=== PATIENT | female | born 1945 | race Caucasian/White ===

== ENCOUNTER → 2016-06-28 | Outpatient (CLI) | payer OTHER ==
[~2016-06-28] MED LIST: ASPCH81X PO; ATOR-24 PO; BIOTCAP2 PO; BUPR-79 PO; CALC-51 PO; CHOL200010 PO; COEN1CAP7 PO; ESCI10TA17 PO
== END | disposition home or self-care (01) ==
LOC: C.LABSPEC 17:25
PROVIDERS: ATTEND Obstetrics & Gynecology
DX: N95.0 Postmenopausal bleeding (principal)

== ENCOUNTER → 2016-07-09 | Outpatient (CLI) | payer OTHER ==
--- NOTE | 2016-07-09 15:29 | MAMMOGRAPHY REPORT ---
BILATERAL DIGITAL SCREENING MAMMOGRAM WITH CAD: 07/09/2016 CLINICAL HISTORY: Routine screening. Patient has no complaints. TECHNIQUE: Bilateral CC and MLO views were obtained. Current study was also evaluated with a Comput er Aided Detection (CAD) system. COMPARISON: Comparison is made to exams dated: 06/21/2015 mammogram, 05/20/2013 mammogram, and 5 mammogram. BREAST COMPOSITION: There are scattered areas of fibroglandular density in both breasts. FINDINGS: The breast parenchymal pattern is similar to prior exams. There are scattered benign-appe aring coarse and round calcifications in the breasts. Minimal vascular calcification. No suspiciou s mass, architectural distortion or cluster of suspicious microcalcifications is seen. IMPRESSION: ACR BI-RADS CATEGORY 1: NEGATIVE There is no mammographic evidence of malignancy. A 1 year screening mammogram is recommended. The p atient will receive written notification of the results. Approximately 10% of breast cancers are not detected with mammography. A negative mammographic repor t should not delay biopsy if a clinically suggestive mass is present. Aledya Gonzales M.D. ay/:07/09/2016 14:13:14 Welfare Worker: Gila BOB,R, M, [facility] letter sent: Normal 1/2 BI-RADS Code: ACR BI-RADS Category 1: Negative
== END | disposition home or self-care (01) ==
LOC: C.MAMM 12:22
PROVIDERS: ATTEND Internal Medicine
DX: Z12.31 Encounter for screening mammogram for malignant neoplasm of breast (principal)

== ENCOUNTER → 2016-07-23 | Outpatient (CLI) | payer OTHER ==
[~2016-07-23] MED LIST changes: +ENOX80IN SQ; +WARF5TAB7 PO
--- NOTE | 2016-07-30 07:06 | CODING QUERY MEDICAL NECESSITY ---
SUPPORTING DIAGNOSIS NEEDED Dr. Garcia, A supporting diagnosis is required for the test/procedure performed on this patient in order for us to be reimbursed by the patient's insurance. Please provide a supporting diagnosis for the following test/procedure listed below next to the test name along with your signature. *If there is no additional diagnosis for this patient that would support the following test/procedure please document that below next to the test/procedure. Test(s)/Procedure(s) that require a supporting diagnosis: * ([id number]) DXA BONE DENSITY, AXIAL DIAGNOSIS: DATE OF SERVICE: 07/23/16 Provider Signature: Date: Thank you Reji Aden [facility] Information Management Once completed, please kindly fax back to [phone] For questions please call [phone]
== END | disposition home or self-care (01) ==
LOC: C.MAMM 08:22
PROVIDERS: ATTEND Internal Medicine
DX: M85.88 Other specified disorders of bone density and structure, other site (principal)

== ENCOUNTER → 2016-08-05 | Day surgery (SDC) | payer OTHER ==
[2016-07-23 14:36] VITALS: Ht 160 cm; Wt 80.0 kg
[~2016-08-05] VITALS: Ht 160 cm; Wt 80.0 kg
[~2016-08-05] MED LIST changes: +ATROPINE SULFATE 0.1 MG/ML 5ML SYR IV PRN; +DEXAMETHASONE SOD INJ 4 MG/ML VIAL ONE; +EpHEDrine SULFATE INJ 50 MG/ML AMP IV PRN; +EpHEDrine SULFATE INJ 50 MG/ML AMP ONE; +FENTANYL CITRATE INJ 50 MCG/1 ML 2 ML VIAL IV PRN; +FENTANYL CITRATE INJ 50 MCG/1 ML 2 ML VIAL ONE; +HYDROmorphone INJ 1 MG/ML SYR IV PRN; +KETOROLAC TROMETHAMINE 30 MG/ML VIAL ONE; +LACTATED RINGER'S 1000ML 1,000 ML IV SCH; +LIDOCAINE HCL 2% 2 ML VIAL (20MG/ML) ONE; +MIDAZOLAM HCL 1 MG/ML 2ML VIAL ONE; +ONDANSETRON INJ 2 MG/ML 2 ML VIAL IV PRN; +ONDANSETRON INJ 2 MG/ML 2 ML VIAL ONE; +OXYCODONE/ACETAMINOPHEN 5-325 TAB PO PRN; +PROMETHAZINE HCL INJ 25 MG in SODIUM CHLORIDE 0.9% 50ML 50 ML IV PRN; +PROPOFOL IV EMULSION 10 MG/ML 20 ML VIAL IV ONE; +SODIUM CHLORIDE 0.9% 1000ML 1,000 ML IV SCH
--- NOTE | 2016-08-05 07:37 | History & Physical Bridge - SC ---
H&P Re-Evaluation Bridge Note: I have examined the patient, reviewed the History & Physical and in the interval since the performance of the History & Physical I have noted the following changes of clinical significance: No changes noted
--- NOTE | 2016-08-05 08:06 | [facility] Post Operative Brief Note ---
Immediate Operative Summary Operative Date Aug 05, 2016. Pre-Operative Diagnosis Post Menopausal Bleeding, cervical stenosis Post-Operative Diagnosis same Procedure(s) Performed Dilatation And Curettage, Hysteroscopy, Polypectomy Surgeon Dr. Serg Connolly Workers Compensation Paralegal Surgeon(s) 0 Estimated Blood Loss 5cc Findings Thin uterine lining, tubal ostia seen. Septate vs arcuate uterus. Fluids (cc crystalloids) 800cc Specimens A. Endometrial Curettings Drains bladder emptied prior to procedure Anesthesia General Complication(s) None Disposition Recovery Room / PACU
--- NOTE | 2016-08-05 08:09 | Discharge Instructions-SurgCtr ---
Discharge Instructions Date of Service Aug 05, 2016. Visit Reason for Visit: Post Menopausal Bleeding Discharge Discharge Diagnosis / Problem: postmenopausal bleeding Discharge Goals Goal(s): Diagnostic testing Activity Recommendations Activity Limitations: per Instructions/Follow-up section Anesthesia . Post Anesthesia Instructions: If you have had General Anesthesia or IV Sedation: * Do not drive today. * Resume driving when surgeon permits. * Do not make important decisions or sign legal documents today. * Call surgeon for: 1. Temperature elevations greater than 101 degrees F. 2. Uncontrollable pain. 3. Excessive bleeding. 4. Persistent nausea and vomiting. 5. Medication intolerance (nausea, vomiting or rash). * For nausea and vomiting use only clear liquids such as: tea, soda, bouillon until nausea subsides, then gradually increase diet as tolerated. * If you have any concerns or questions, call your surgeon's office. If physician is unavailable and it is an emergency, call 911 or go to the nearest emergency room. . Diet Recommendations Home Diet: resume previous diet Procedures Procedures Performed: Dilatation And Curettage, Hysteroscopy Pending Studies Studies pending at discharge: yes List of pending studies: pathology - endometrial currettage Medical Emergencies . Who to Call and When: Medical Emergencies: If at any time you feel your situation is an emergency, please call 911 immediately. . Non-Emergent Contact Non-Emergency issues call your: Primary Care Provider, Sweatband Perforator . . "Provider Documentation" section prepared by Faye Connolly.
--- NOTE | 2016-08-05 08:14 | Medical Student: [facility] ---
Operative Report Operative Date Aug 05, 2016. Pre-Operative Diagnosis Postmenopausal uterine bleeding Post-Operative Diagnosis Same Procedure(s) Performed Hysteroscopy, dilation and curettage, exam under anesthesia Surgeon Faye Connolly DO Customer Quality Engineer Surgeon(s) None Estimated Blood Loss 5mL Findings Atrophic endometrium Bilateral tubes visualized Possible septate uterus Stenotic cervix Otherwise normal postmenopausal anatomy Fluids (cc crystalloids) 800mL Lactated Ringer's Specimens Endometrial curettings Drains Bladder emptied with straight catheter prior to initiating procedure Anesthesia General anesthesia via laryngeal mask airway Complication(s) None Disposition Recovery Room / PACU
[2016-08-05 08:54] VITALS: TEMP 36.7
--- NOTE | 2016-08-05 09:08 | Discharge Instructions-SurgCtr ---
Discharge Instructions Date of Service Aug 05, 2016. Visit Reason for Visit: Post Menopausal Bleeding Discharge Discharge Diagnosis / Problem: same Discharge Goals Goal(s): Diagnostic testing Activity Recommendations Activity Limitations: per Instructions/Follow-up section Anesthesia . Post Anesthesia Instructions: If you have had General Anesthesia or IV Sedation: * Do not drive today. * Resume driving when surgeon permits. * Do not make important decisions or sign legal documents today. * Call surgeon for: 1. Temperature elevations greater than 101 degrees F. 2. Uncontrollable pain. 3. Excessive bleeding. 4. Persistent nausea and vomiting. 5. Medication intolerance (nausea, vomiting or rash). * For nausea and vomiting use only clear liquids such as: tea, soda, bouillon until nausea subsides, then gradually increase diet as tolerated. * If you have any concerns or questions, call your surgeon's office. If physician is unavailable and it is an emergency, call 911 or go to the nearest emergency room. . Instructions / Follow-Up Instructions / Follow-Up ACTIVITY RECOMMENDATIONS: * Avoid tampons, douching, hot tubs, pools, and intercourse until bleeding has stopped. * May shower as usual. * No strenuous activity for 24-48 hours. After 24-48 hours, you may do anything you feel like doing (driving and sports are okay). SPECIAL CARE INSTRUCTIONS: Special Diet: * Mild nausea may occur in the immediate post-operative period. * Take clear liquids such as tea, cola or bouillon until all nausea has subsided; you may then resume your normal diet. Special Care: * Light bleeding and vaginal spotting can last from a few days to 3-4 weeks. Call your doctor if bleeding becomes heavier than the heaviest part of your period. * Check your temperature twice a day for one week. If it goes above 100.4 degrees Fahrenheit (38.0 Celsius), notify your doctor. * Call your doctor's office for an appointment for 6 weeks after your surgery. FOLLOW-UP VISIT: Call your doctor's office for an appointment for 6 weeks after your surgery. Diet Recommendations Home Diet: resume previous diet Procedures Procedures Performed: Dilatation And Curettage, Hysteroscopy Pending Studies Studies pending at discharge: yes List of pending studies: pathology Medical Emergencies . Who to Call and When: Medical Emergencies: If at any time you feel your situation is an emergency, please call 911 immediately. . Non-Emergent Contact Non-Emergency issues call your: Primary Care Provider, Hospital Monitor . . "Provider Documentation" section prepared by Faye Connolly.
--- NOTE | 2016-08-05 09:09 | Anesthesia Progress Nt - [facility] ---
Anesthesia Post Op Note Date & Time Aug 05, 2016 at 09:08 Vital Signs Pain Intensity: 0 Vital Signs Past 12 Hours Date Time Temp Pulse Resp B/P Pulse Ox O2 Delivery O2 Flow Rate FiO2 08/05/16 08:54 36.7 86 18 125/79 94 Room Air 08/05/16 08:40 36.9 08/05/16 08:37 83 19 08/05/16 08:37 84 19 92 08/05/16 08:35 110/74 08/05/16 08:32 Room Air 08/05/16 08:32 85 16 90 08/05/16 08:32 85 16 08/05/16 08:30 99/65 08/05/16 08:27 85 10 08/05/16 08:27 85 10 98 08/05/16 08:25 120/71 08/05/16 08:22 86 14 08/05/16 08:22 86 14 99 08/05/16 08:20 119/71 08/05/16 08:17 90 15 98 08/05/16 08:17 91 15 08/05/16 08:15 114/74 08/05/16 08:12 94 17 08/05/16 08:12 94 17 98 08/05/16 08:10 119/67 08/05/16 08:10 113/65 08/05/16 08:08 36.4 92 12 119/67 99 Diffusion Mask 6 08/05/16 06:42 36.9 68 16 142/86 94 Room Air Notes Mental Status: alert / awake / arousable, participated in evaluation Pt Amnestic to Procedure: Yes Nausea / Vomiting: adequately controlled Pain: adequately controlled Airway Patency, RR, SpO2: stable & adequate BP & HR: stable & adequate Hydration State: stable & adequate Anesthetic Complications: no major complications apparent
[2016-08-05 09:24] VITALS: BP 124/80; PULSE 80; O2SAT 94
--- NOTE | 2016-08-05 09:24 | OPERATIVE REPORT ---
DATE OF OPERATION: 08/05/2016 PREOPERATIVE DIAGNOSIS: Postmenopausal bleeding and cervical stenosis. POSTOPERATIVE DIAGNOSIS: Same. PROCEDURES PERFORMED: Dilation, curettage and hysteroscopy. SURGEON: Faye Connolly DO GAS SINGER: None. ESTIMATED BLOOD LOSS: 5 mL. FINDINGS: Thin uterine lining, tubal ostia seen, septate versus arcuate uterus. FLUIDS: 800 mL. SPECIMENS: Endometrial curettings. DRAINS: Bladder emptied prior to procedure. ANESTHESIA: General. COMPLICATIONS: None. DISPOSITION: Stable and good, to recovery room. INDICATIONS FOR PROCEDURE: The patient is a 70-year-old, who had an attempted endometrial biopsy performed in the office due to postmenopausal bleeding. Findings included an endometrial canal on ultrasound; however, due to cervical stenosis I was unable to dilate her cervix enough to admit the endometrial biopsy pipelle. Therefore, she was taken for hysteroscopy and D\T\C. DESCRIPTION OF PROCEDURE: The patient was seen in the preoperative holding area where risks, benefits and alternatives to surgery were reviewed. She elected to proceed with surgery. She had previously signed informed consent in the office under no duress. All questions were answered. She was taken to the operating room where general anesthesia was introduced. A timeout was confirmed. No antibiotics were given. She was placed in the dorsal lithotomy position with feet in YelloFin stirrups. She was prepared and draped in the usual sterile fashion. A weighted speculum was placed in the vagina. Cervix was visualized and the anterior lip of the cervix was grasped with a single tooth tenaculum. Using cervical dilators, the cervix was gently dilated to admit the hysteroscopy scope; the scope was introduced and the above noted findings were seen. The scope was withdrawn and a gentle curettage was undertaken with a sharp curette. These curettings were sent to pathology for further evaluation. All instruments were removed from the vagina. Excellent hemostasis was observed. The patient was awoken from anesthesia and taken to the recovery room in stable and good condition. I attest to the content of the Intraoperative Record and any orders documented therein. Any exceptio ns are noted below.
== END | disposition home or self-care (01) ==
LOC: X.SURG 06:12
PROVIDERS: ATTEND Obstetrics & Gynecology
DX: N95.0 Postmenopausal bleeding (principal); N88.2 Stricture and stenosis of cervix uteri; C54.1 Malignant neoplasm of endometrium; F41.9 Anxiety disorder, unspecified; F32.9 Major depressive disorder, single episode, unspecified; E66.9 Obesity, unspecified; Z87.891 Personal history of nicotine dependence; Z79.82 Long term (current) use of aspirin; Z79.899 Other long term (current) drug therapy

== ENCOUNTER → 2017-01-22 | Outpatient (CLI) | payer OTHER ==
[~2017-01-22] MED LIST changes: -ATROPINE SULFATE 0.1 MG/ML 5ML SYR IV PRN; -DEXAMETHASONE SOD INJ 4 MG/ML VIAL ONE; -EpHEDrine SULFATE INJ 50 MG/ML AMP IV PRN; -EpHEDrine SULFATE INJ 50 MG/ML AMP ONE; -FENTANYL CITRATE INJ 50 MCG/1 ML 2 ML VIAL IV PRN; -FENTANYL CITRATE INJ 50 MCG/1 ML 2 ML VIAL ONE; -HYDROmorphone INJ 1 MG/ML SYR IV PRN; -KETOROLAC TROMETHAMINE 30 MG/ML VIAL ONE; -LACTATED RINGER'S 1000ML 1,000 ML IV SCH; -LIDOCAINE HCL 2% 2 ML VIAL (20MG/ML) ONE; -MIDAZOLAM HCL 1 MG/ML 2ML VIAL ONE; -ONDANSETRON INJ 2 MG/ML 2 ML VIAL IV PRN; -ONDANSETRON INJ 2 MG/ML 2 ML VIAL ONE; -OXYCODONE/ACETAMINOPHEN 5-325 TAB PO PRN; -PROMETHAZINE HCL INJ 25 MG in SODIUM CHLORIDE 0.9% 50ML 50 ML IV PRN; -PROPOFOL IV EMULSION 10 MG/ML 20 ML VIAL IV ONE; -SODIUM CHLORIDE 0.9% 1000ML 1,000 ML IV SCH
[2017-01-22 14:39] VITALS: BP 150/89; PULSE 90; TEMP 36.9
--- NOTE | 2017-01-22 16:33 | Radiation Oncology Follow-Up ---
Radiation Oncology Follow-Up Date of Visit Jan 22, 2017. Reason For Visit One-month follow-up in cancer survivorship care plan Radiation Completion Date 12/12/16 Diagnosis (1) Cervical cancer Status: Resolved Onset Date: 09/02/2016 Histology Subtype: squamous cell carcinoma Stage: l (IB1) Permanent Comment: Postmenopausal vaginal bleeding Status post endometrial curettage 08/05/2016 Status post robotic-assisted total laparoscopic hysterectomy, bilateral salpingo -oophorectomy, dissection of pelvic lymph nodes and cystoscopy, repair of suspected rectal injury. 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 She received 5040 cGy external beam treatment. She also had 3 HDR treatments at 400 cGy each. Last Edited By: Juliana Griggs on Dec 24, 2016 16:39 History of Present Illness Ms. Castillo is a 71-year-old female who recently presented with postmenopausal bleeding. Patient was seen by Dr. Mackenzie from gynecology who did perform an in office examination on 06/28/2016 which did not reveal any concerning physical findings on gynecologic evaluation. Other workup was completed including a urinalysis which was negative. The patient was then evaluated by Dr. Connolly from gynecology who did attempt to perform an in office biopsy however was unable to complete the biopsy due to cervical stenosis. Dr. Connolly p brought the patient to the operating room on 08/05/2016 and did perform a dilation, curettage and hysteroscopy. 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 The patient was referred to Dr. Marietta Bland from [facility] [place] in the Department of gynecologic oncology. Dr. Bland evaluated the patient and did order a CT of the abdomen and pelvis with contrast which was completed on 08/08/2016 which revealed no evidence of disease within the pelvis or any lymphadenopathy. The patient elected for a EDITH/BSO and underwent the procedure on 09/02/2016. Pathology revealed poorly differentiated invasive squamous cell carcinoma involving the cervix that extended 6/10 mm of the stroma. The margins were negative and the closest margin was 3 mm involving the cervical soft tissue margin. 5 lymph nodes were resected and all of the lymph nodes were negative. Lymphovascular space invasion was present. The tumor measured 1.0 cm in the greatest dimension. The previous pathology from [facility] was reviewed at [facility] and the diagnosis was changed from endometrioid adenocarcinoma to invasive squamous cell carcinoma. Dr. Bland recommended consideration of adjuvant radiation therapy and chemotherapy due to the unexpected change in diagnosis in the high risk pathologic features found at the time of surgery. We are now seeing the patient in consultation to discuss the role of adjuvant radiation therapy. In general, the patient is doing relatively well. She denies any vaginal discharge. She denies any vaginal bleeding. She is other complaints. She underwent combined radiation and chemotherapy. Her radiation was completed 12/16/2016. She had external beam therapy and received 5040 cGy. She had 3 HDR treatments. 400 cGy each. Interim History She's been doing well over the past month. Her energy levels are back to normal. She did have frequent loose bowel movements towards the end of treatment. The bowel habits improved and the side effect resolved after approximately 2 weeks. She denies any abdominal pain or discomfort. She's had no change in urination. She denies any vaginal discharge or bleeding. She saw in follow-up last week at [facility]. Pelvic examination was performed and there was no evidence of recurrence. In reviewing her notes she is planning recheck CAT scan of the chest abdomen and pelvis in 4-6 weeks. She is also followed by medical oncology. She recently had laboratory studies. Unfortunately her blood work continues to show neutropenia. Allergies Coded Allergies: Dust (Verified Allergy, Unknown, WATERY EYES, SNEEZING, 08/05/16) NO KNOWN DRUG ALLERGIES (Verified Allergy, Unknown, ., 08/05/16) Home Medications Scheduled Aspirin (Aspirin Chewable), 81 MG PO QAM Atorvastatin (Lipitor), 40 MG PO QAM Biotin (Biotin 5000), 1 CAP PO QAM Bupropion (Wellbutrin Sr), 150 MG PO QAM Calcium Carbonate-Vitamin D (Calcium), 1,200 MG PO QAM Cholecalciferol (Vitamin D), 1 CAP PO QAM Coenzyme Q10 (Ubidecarenone) (Coq10), 1 CAP PO QAM Escitalopram (Lexapro), 20 MG PO QAM Review of Systems Gastrointestinal: Symptoms: WNL Oral: Symptoms: No Problems Respiratory: Symptoms: WNL Urinary: Symptoms: WNL Skin: Symptoms: No Problems Physical Exam Vital Signs Date Time Temp Pulse Resp B/P (MAP) Pulse Ox O2 Delivery O2 Flow Rate FiO2 01/22/17 14:39 36.9 90 91 150/89 Pain: Patient Pain Scale: 0 - 10 Initial Pain Intensity: 0.0 Fatigue: None General Appearance: no apparent distress Eyes: normal inspection, EOMI ENT: normal ENT inspection, hearing grossly normal Neck: no adenopathy, thyroid normal Respiratory/Chest: lungs clear, no respiratory distress, no accessory muscle use Cardiovascular: regular rate, rhythm, no gallop, no murmur Abdomen: non tender, soft, no organomegaly Genitourinary - Female: Deferred. Recently performed one week ago by the gynecologic oncologist. She was noted to have no reoccurrence. Extremities: no pedal edema Neurologic/Psychiatric: no motor/sensory deficits, alert, normal mood/affect Skin: warm/dry Laboratory Studies Test 11/06/16 17:50 11/27/16 18:11 12/04/16 18:15 12/11/16 09:43 Magnesium Level 1.8 mg/dl (1.8-2.4) 1.2 mg/dl (1.8-2.4) Platelet Estimate DECREASED Red Blood Cell Morphology Unremarkable Unremarkable Est Creatinine Clear Calc Drug Dose 61.8 ml/min 59.1 ml/min White Blood Count 1.47 K/uL (4.8-10.8) Red Blood Count 3.74 M/uL (4.2-5.4) Hemoglobin 11.5 g/dL (12.0-16.0) Hematocrit 34.6 % (37-47) Mean Corpuscular Volume 92.5 fL (80-100) Mean Corpuscular Hemoglobin 30.7 pg (25-34) Mean Corpuscular Hemoglobin Concent 33.2 g/dl (32-36) Platelet Count 101 K/uL (130-400) Mean Platelet Volume 8.9 fL (7.4-10.4) Neutrophils (%) (Auto) 44.9 % Lymphocytes (%) (Auto) 38.1 % Monocytes (%) (Auto) 10.9 % Eosinophils (%) (Auto) 6.1 % Basophils (%) (Auto) 0.0 % Neutrophils # (Auto) 0.66 K/uL (1.4-6.5) Lymphocytes # (Auto) 0.56 K/uL (1.2-3.4) Monocytes # (Auto) 0.16 K/uL (0.11-0.59) Eosinophils # (Auto) 0.09 K/uL (0-0.5) Basophils # (Auto) 0.00 K/uL (0-0.2) RDW Standard Deviation 46.9 fL (36.4-46.3) RDW Coefficient of Variation 14.7 % (11.5-14.5) Immature Granulocyte % (Auto) 0.0 % Immature Granulocyte # (Auto) 0.00 K/uL (0.00-0.02) Sodium Level 139 mmol/L (136-145) Potassium Level 3.8 mmol/L (3.5-5.1) Chloride Level 105 mmol/L (98-107) Carbon Dioxide Level 27 mmol/L (21-32) Anion Gap 7.0 mmol/L (3-11) Blood Urea Nitrogen 14 mg/dl (7-18) Creatinine 0.91 mg/dl (0.60-1.20) Estimated GFR () 74.1 Estimated GFR (Non- 63.9 BUN/Creatinine Ratio 15.8 (10-20) Random Glucose 86 mg/dl (70-99) Calcium Level 8.8 mg/dl (8.5-10.1) Total Bilirubin 0.5 mg/dl (0.2-1) Aspartate Amino Transferase (AST) 13 U/L (15-37) Alanine Aminotransferase (ALT) 19 U/L (12-78) Alkaline Phosphatase 69 U/L (45-117) Total Protein 6.9 gm/dl (6.4-8.2) Albumin 3.6 gm/dl (3.4-5.0) Globulin 3.3 gm/dl (2.5-4.0) Albumin/Globulin Ratio 1.1 (0.9-2) Test 12/17/16 14:43 White Blood Count 1.59 K/uL (4.8-10.8) Red Blood Count 3.73 M/uL (4.2-5.4) Hemoglobin 11.9 g/dL (12.0-16.0) Hematocrit 34.7 % (37-47) Mean Corpuscular Volume 93.0 fL (80-100) Mean Corpuscular Hemoglobin 31.9 pg (25-34) Mean Corpuscular Hemoglobin Concent 34.3 g/dl (32-36) Platelet Count 205 K/uL (130-400) Mean Platelet Volume 8.5 fL (7.4-10.4) Neutrophils (%) (Auto) 29.5 % Lymphocytes (%) (Auto) 40.9 % Monocytes (%) (Auto) 25.2 % Eosinophils (%) (Auto) 3.1 % Basophils (%) (Auto) 0.0 % Neutrophils # (Auto) 0.47 K/uL (1.4-6.5) Lymphocytes # (Auto) 0.65 K/uL (1.2-3.4) Monocytes # (Auto) 0.40 K/uL (0.11-0.59) Eosinophils # (Auto) 0.05 K/uL (0-0.5) Basophils # (Auto) 0.00 K/uL (0-0.2) RDW Standard Deviation 50.1 fL (36.4-46.3) RDW Coefficient of Variation 15.8 % (11.5-14.5) Immature Granulocyte % (Auto) 1.3 % Immature Granulocyte # (Auto) 0.02 K/uL (0.00-0.02) Large Platelets 1+ Sodium Level 139 mmol/L (136-145) Potassium Level 4.2 mmol/L (3.5-5.1) Chloride Level 106 mmol/L (98-107) Carbon Dioxide Level 28 mmol/L (21-32) Anion Gap 5.0 mmol/L (3-11) Blood Urea Nitrogen 8 mg/dl (7-18) Creatinine 0.88 mg/dl (0.60-1.20) Estimated GFR () 77.2 Estimated GFR (Non- 66.6 BUN/Creatinine Ratio 9.6 (10-20) Random Glucose 96 mg/dl (70-99) Calcium Level 9.5 mg/dl (8.5-10.1) Total Bilirubin 0.5 mg/dl (0.2-1) Aspartate Amino Transferase (AST) 11 U/L (15-37) Alanine Aminotransferase (ALT) 19 U/L (12-78) Alkaline Phosphatase 80 U/L (45-117) Total Protein 7.2 gm/dl (6.4-8.2) Albumin 3.7 gm/dl (3.4-5.0) Globulin 3.5 gm/dl (2.5-4.0) Albumin/Globulin Ratio 1.1 (0.9-2) Assessment & Plan Plan: Continue regular follow-up with her gynecologic oncologist, medical oncologist, and primary care physician. She is was also seen today by Dr. Peterson. There are plans by the gynecologic oncologist for her to have a recheck CT scan of the chest, abdomen, and pelvis in approximately 4-6 weeks. She'll be seeing her and performing recheck pelvic examinations every 3 months. She also stated that she did not have to use a vaginal dilator. Today we completed a cancer survivorship care plan. A copy of the document was given to the patient. We asked her to return to our office in 6 months. She may call if she has any questions or concerns in the interim. Assessment & Plan (Attending) ADDENDUM: I agree with note created by Juliana Griggs PA-C. I reviewed the patient's chart and information with her. I have examined and evaluated the patient. I reviewed relevant clinical information and answered the patient's and /or family's questions. VEHICLE MAINTENANCE TECHNICIAN Total Time In Follow-Up I spent 20 minutes speaking to the patient and performing examination. I spent 20 minutes reviewing information, preparing the survivorship document, and completing this note. Total Time (Attending) In Follow-Up I spent 15 minutes examining and counseling the patient. VEHICLE MAINTENANCE TECHNICIAN Copy To Slava Garcia M.D.; Anjel Fry D.O.; Marietta Bland M.D. Problem Qualifiers (1) Cervical cancer: Malignant neoplasm of cervix location: overlapping locations Qualified Codes: C53.8 - Malignant neoplasm of overlapping sites of cervix uteri
== END | disposition home or self-care (01) ==
LOC: C.ONC 14:32
PROVIDERS: ATTEND Physician Assistant Medical
DX: Z08 Encounter for follow-up examination after completed treatment for malignant neoplasm (principal); Z92.3 Personal history of irradiation; C53.9 Malignant neoplasm of cervix uteri, unspecified

== ENCOUNTER → 2017-07-11 | Outpatient (CLI) | payer OTHER ==
[~2017-07-11] MED LIST changes: -ASPCH81X PO; -ENOX80IN SQ; +PSYL0.524 PO
--- NOTE | 2017-07-14 12:43 | MAMMOGRAPHY REPORT ---
BILATERAL DIGITAL SCREENING MAMMOGRAM TOMOSYNTHESIS WITH CAD: 07/11/2017 CLINICAL HISTORY: Routine screening. Patient has no complaints. TECHNIQUE: Breast tomosynthesis in addition to standard 2D mammography was performed. Current study was also evaluated with a Computer Aided Detection (CAD) system. COMPARISON: Comparison is made to exams dated: 07/09/2016 mammogram - [facility], mammogram, 05/23/2014 mammogram, and 05/20/2013 mammogram. BREAST COMPOSITION: There are scattered areas of fibroglandular density in both breasts. FINDINGS: No suspicious masses, calcifications, or areas of architectural distortion are noted in ei ther breast. There has been no significant interval change compared to prior exams. Scattered bilater al benign-appearing calcifications are not significantly changed. IMPRESSION: ACR BI-RADS CATEGORY 2: BENIGN There is no mammographic evidence of malignancy. A 1 year screening mammogram is recommended. The pa tient will receive written notification of the results. Approximately 10% of breast cancers are not detected with mammography. A negative mammographic report should not delay biopsy if a clinically suggestive mass is present. Chely Franks M.D. ah/:07/11/2017 13:49:25 Medical Insurance Claims Specialist: Krystin BOB(Ilir)(M), [facility] letter sent: Normal 1/2 BI-RADS Code: ACR BI-RADS Category 2: Benign
== END | disposition home or self-care (01) ==
LOC: C.MAMM 12:24
PROVIDERS: ATTEND Internal Medicine
DX: Z12.31 Encounter for screening mammogram for malignant neoplasm of breast (principal)

== ENCOUNTER → 2017-07-23 | Outpatient (CLI) | payer OTHER | END | disposition home or self-care (01) | LOC: C.LAB 16:07 | PROVIDERS: ATTEND Internal Medicine | DX: Z11.59 Encounter for screening for other viral diseases (principal) ==

== ENCOUNTER → 2017-07-23 | Outpatient (CLI) | payer OTHER ==
[2017-07-23 13:57] VITALS: BP 115/77; PULSE 105; TEMP 36.3; O2SAT 90
--- NOTE | 2017-07-23 16:53 | Radiation Oncology Follow-Up ---
Radiation Oncology Follow-Up Date of Visit Jul 23, 2017. Reason For Visit Six-month follow-up Radiation Completion Date 12/16/16 Diagnosis (1) Cervical cancer Status: Resolved Onset Date: 09/02/2016 Histology Subtype: Squamous cell carcinoma Stage: l (1B1) Permanent Comment: Postmenopausal vaginal bleeding Status post endometrial curettage 08/05/2016 Status post robotic-assisted total laparoscopic hysterectomy, bilateral salpingo -oophorectomy, dissection of pelvic lymph nodes and cystoscopy, repair of suspected rectal injury. 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 She received 5040 cGy external beam treatment. She also had 3 HDR treatments at 400 cGy each. Last Edited By: Juliana Griggs on Dec 24, 2016 16:39 History of Present Illness Ms. Castillo presented with postmenopausal bleeding. Patient was seen by Dr. Mackenzie from gynecology who did perform an in office examination on 2016 which did not reveal any concerning physical findings on gynecologic evaluation. Other workup was completed including a urinalysis which was negative. The patient was then evaluated by Dr. Connolly from gynecology who did attempt to perform an in office biopsy however was unable to complete the biopsy due to cervical stenosis. Dr. Connolly p brought the patient to the operating room on 08/05/2016 and did perform a dilation, curettage and hysteroscopy. 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 The patient was referred to Dr. Marietta Bland from [facility] in the Department of gynecologic oncology. Dr. Bland evaluated the patient and did order a CT of the abdomen and pelvis with contrast which was completed on 08/08/2016 which revealed no evidence of disease within the pelvis or any lymphadenopathy. The patient elected for a EDITH/BSO and underwent the procedure on 09/02/2016. Pathology revealed poorly differentiated invasive squamous cell carcinoma involving the cervix that extended 6/10 mm of the stroma. The margins were negative and the closest margin was 3 mm involving the cervical soft tissue margin. 5 lymph nodes were resected and all of the lymph nodes were negative. Lymphovascular space invasion was present. The tumor measured 1.0 cm in the greatest dimension. The previous pathology from [facility] was reviewed at [facility] and the diagnosis was changed from endometrioid adenocarcinoma to invasive squamous cell carcinoma. Dr. Bland recommended consideration of adjuvant radiation therapy and chemotherapy due to the unexpected change in diagnosis in the high risk pathologic features found at the time of surgery. We are now seeing the patient in consultation to discuss the role of adjuvant radiation therapy. In general, the patient is doing relatively well. She denies any vaginal discharge. She denies any vaginal bleeding. She is other complaints. She underwent combined radiation and chemotherapy. Her radiation was completed 12/16/2016. She had external beam therapy and received 5040 cGy. She had 3 HDR treatments. 400 cGy each. Interim History She has had steady improvement in her energy levels over the past several months. She had been ill in February with upper respiratory infection. She stated it took her nearly a month to recuperate. She has resumed her regular visits to her family in [place]. She recently attended a play and was able to walk a long distance to and from her hotel. She is pleased with her current energy levels. She has concerns with irregularity of bowel habits. She will have diarrhea and then will have small constipated stools. On occasion she will have a small amount of incontinence of stool. She denies any rectal bleeding. She does have gas and pass of mucus. There can be urgency of bowel movements. Allergies Coded Allergies: Dust (Verified Allergy, Unknown, WATERY EYES, SNEEZING, 08/05/16) NO KNOWN DRUG ALLERGIES (Verified Allergy, Unknown, ., 08/05/16) Home Medications Scheduled Atorvastatin (Lipitor), 40 MG PO QAM Biotin (Biotin 5000), 1 CAP PO QAM Bupropion (Wellbutrin Sr), 150 MG PO QAM Calcium Carbonate-Vitamin D (Calcium), 1,200 MG PO QAM Cholecalciferol (Vitamin D), 1 CAP PO QAM Coenzyme Q10 (Ubidecarenone) (Coq10), 1 CAP PO QAM Escitalopram (Lexapro), 20 MG PO QAM Psyllium (Metamucil), 1 DOSE PO DAILY Warfarin Sod (Jantoven), 5 MG PO DAILY Review of Systems Gastrointestinal: GI Comments: gas, rectal incontinence, mucus discharge, urgency Oral: Symptoms: Painless Ulcers Respiratory: Symptoms: WNL Urinary: Symptoms: WNL Comments: lesss urinary leakage Skin: Symptoms: No Problems Physical Exam Vital Signs Date Time Temp Pulse Resp B/P (MAP) Pulse Ox O2 Delivery O2 Flow Rate FiO2 07/23/17 13:57 36.3 105 20 115/77 90 Fatigue: None General Appearance: no apparent distress Eyes: normal inspection, EOMI ENT: normal ENT inspection, hearing grossly normal Neck: no adenopathy, thyroid normal Respiratory/Chest: lungs clear, no respiratory distress, no accessory muscle use Cardiovascular: regular rate, rhythm, no gallop, no murmur Abdomen: non tender, soft, no organomegaly Genitourinary - Female: external genitalia normal, + pertinent finding (Pelvic examination performed by Dr. Peterson revealed foreshortening of the vagina. There is post radiation changes at the apex. Mild friability. There is easy bleeding due to her anticoagulation. There were no visible or palpable lesions. ) Anal / Rectum: Rectal examination revealed normal sphincter tone. There is no rectal masses and no rectal bleeding. Neurologic/Psychiatric: no motor/sensory deficits, alert, normal mood/affect Skin: warm/dry Pain Management Patient Reports Pain: No Pain Location: None Patient Preferred Pain Scale: 0 - 10 Initial Pain Intensity: 0.0 Pain Management Plan She denied pain therefore requires no pain management. Laboratory Laboratory Results: not applicable Pathology Pathology Results: were reviewed, and pertinent findings noted in HPI Imaging Imaging Studies: not applicable Assessment & Plan Plan: We discussed using Metamucil to help with regularity of her bowel habits. For the intermittent incontinence Kegel exercises were suggested. She was seen and examined by Dr. Peterson he recommended a possible colonoscopy if she continues to have issues with her bowels. Continue regular follow-up with her gynecologic oncologist as well as Dr. Gunderson. We asked her to return to our office in 6 months. She may call if she has any questions or concerns in the interim. Assessment & Plan (Attending) I agree with note created by Juliana Griggs PA-C. I reviewed the patient's chart and information with her. I have examined and evaluated the patient. I reviewed relevant clinical information and answered the patient's and/or family' s questions. LATEXER Total Time In Follow-Up I spent 25 minutes speaking to the patient in performing examination. I spent 15 minutes reviewing information and completing this note. AK Total Time (Attending) In Follow-Up I spent 15 minutes examining and counseling the patient. LATEXER Copy To Slava Garcia M.D.; Anjel Fry D.O.; Marietta Bladn M.D. Problem Qualifiers (1) Cervical cancer: Malignant neoplasm of cervix location: overlapping locations Qualified Codes: C53.8 - Malignant neoplasm of overlapping sites of cervix uteri
== END | disposition home or self-care (01) ==
LOC: C.ONC 13:47
PROVIDERS: ATTEND Physician Assistant Medical
DX: Z08 Encounter for follow-up examination after completed treatment for malignant neoplasm (principal); Z92.3 Personal history of irradiation; Z85.41 Personal history of malignant neoplasm of cervix uteri